=== PATIENT | female | born 1990 | race Two or more races ===

== ENCOUNTER → 2016-11-08 | Outpatient (CLI) | payer BC ==
[2016-11-08 18:42] LABS: BASO % 0.2 % (0.0-1.0); EOS % 0.7 % (0.0-3.0); LARGE UNSTAINED CELL % 0.6 % (0.0-4.0); LYMPH # 0.9 K/mm3 (1.5-6.5); LYMPH % 12.9 % (24.0-44.0); MEAN CORPUSCULAR HEMOGLOBIN 31.1 pg (27.0-33.0); MEAN CORPUSCULAR HGB CONC 34.4 g/dl (32.0-36.5); MEAN CORPUSCULAR VOLUME 90.2 fl (80.0-96.0); MONO # 0.2 K/mm3 (0.0-0.8); MONO % 3.5 % (0.0-5.0); NEUTROPHILS # 5.7 K/mm3 (1.8-7.7); NEUTROPHILS % 82.2 % (36.0-66.0); PLATELET COUNT, AUTOMATED 289 k/mm3 (150-450); RED CELL DISTRIBUTION WIDTH 11.5 % (11.5-14.5); WHITE BLOOD COUNT 6.9 K/mm3 (4.0-10.0)
[2016-11-08 19:07] LABS: T UPTAKE 29 % (30-39)
[2016-11-09 10:18] LABS: HIV SCRN NEGATIVE (NEGATIVE); HIV SCRN1 NEGATIVE (NEGATIVE)
[2016-11-09 10:19] LABS: CONTROL LINE INT CTR LINE PRESENT
[2016-11-11 10:48] LABS: HBsAg Prenatal NEGATIVE (NEGATIVE)
== END ==
LOC: M SMT 13:42
PROVIDERS: ATTEND Obstetrics & Gynecology
DX: Z34.81 Encounter for supervision of other normal pregnancy, first trimester (principal)

== ENCOUNTER → 2016-12-16 | Outpatient (CLI) | payer BC | LOC: M LAB 07:36 | PROVIDERS: ATTEND Specialist | DX: Z13.79 Encounter for other screening for genetic and chromosomal anomalies (principal) ==

== ENCOUNTER → 2017-01-20 | Outpatient (CLI) | payer BC ==
--- NOTE | 2017-01-20 18:19 | REP ---
Clinical: Anatomical evaluation. Comparison: None . Findings: Examination demonstrates a single live intrauterine in cephalic presentation. motion is identified by technologist. Placenta is noted posterior and grade zero without evidence for placenta previa or abruption. Amniotic fluid volume is normal. Cervix measures 4.3 cm in length and appears closed. No evidence for nuchal cord. Gestational age by LMP 19 weeks 1 day with DAVID 06/15/2017 . Gestational age by current measurements 19 weeks 1 day with DAVID 06/15/2017 . FHR equals 155 beats per minute. BPD 4.5 cm 19 weeks 4 days HC 16.3 cm 19 weeks 0 days AC 12.8 cm 18 weeks 2 days FL 3.2 cm 20 weeks 0 days HL 2.8 cm 18 weeks 6 days HC/AC ratio 1.28 Estimated weight 275 grams ( 47th percentile). Anatomical assessment demonstrates normal structures including cerebellum/posterior fossa, lungs, ventricular outflow tracts, diaphragm, stomach, cord insertion, bladder, spine, and upper extremities. Bilateral hydronephrosis with the renal pelvises measuring 5 mm diameter. Limited evaluation of the cranium, cord plexus, cavum, facial features, four-chamber heart, three-vessel cord, and lower extremities (cannot exclude clubfoot). Impression: Appropriate interval growth. Bilateral hydronephrosis suggested and anatomical limitations as described above may warrant reevaluation and follow-up. Signed by Bg Monroe MD 01/20/2017 06:10 P
== END ==
LOC: M RAD 16:20
PROVIDERS: ATTEND Obstetrics & Gynecology
DX: Z36 Encounter for antenatal screening of mother (principal)

== ENCOUNTER → 2017-02-05 | Outpatient (CLI) | payer BC ==
[2017-02-05 13:52] LABS: FREE T4 1.11 NG/DL (0.76-1.46)
== END ==
LOC: M SMT 09:12
PROVIDERS: ATTEND Advanced Practice Midwife
DX: E03.9 Hypothyroidism, unspecified (principal)

== ENCOUNTER → 2017-02-10 | Outpatient (CLI) | payer BC ==
--- NOTE | 2017-02-11 09:26 | REP ---
REASON: Followup anatomy. Multiple ultrasonographic images of the gravid uterus show a single living intrauterine gestation in the cephalic presentation. Doppler interrogation of the heart shows a heart rate of 136 beats per minute. The placenta is posterior and not low lying. The subjective amniotic fluid volume is within normal limits. The cervix measures approximately 3.1 cm in length and is closed. Evaluation of the maternal adnexal spaces showed no abnormalities. BPD 5.3 cm 22 weeks 0 days HC 19.6 cm 21 weeks 5 days AC 16.9 cm 21 weeks 6 days FL 3.7 cm 21 weeks 6 days The estimated weight is 459 grams which is at the 39th percentile for 22 week 1 day gestational age. Structures visualized as unremarkable are as follows: Thalami, cavum septum pellucidum, cerebellum, cisterna magna, cerebral ventricles, spine, kidneys, urinary bladder, cord insertion, three vessel umbilical cord, stomach, four chamber heart, right and left ventricular outflow tracts, thorax, upper lip and facial profile, and upper and lower extremities. The spine was not well visualized today, however, it was well visualized on the prior exam of 01/20/2017. IMPRESSION: Single living intrauterine gestation as described above with an estimated gestational age of 21 weeks 6 days via composite criteria and estimated date of delivery of 06/17/2017 by today's exam. No anomalies were detected. Signed by Crow Young DO 02/11/2017 04:07 P
== END ==
LOC: M RAD 17:25
PROVIDERS: ATTEND Advanced Practice Midwife
DX: Z34.82 Encounter for supervision of other normal pregnancy, second trimester (principal); Z3A.21 21 weeks gestation of pregnancy

== ENCOUNTER → 2017-03-19 | Outpatient (CLI) | payer BC ==
[2017-03-19 12:53] LABS: MEAN CORPUSCULAR HEMOGLOBIN 31.6 pg (27.0-33.0); MEAN CORPUSCULAR HGB CONC 34.2 g/dl (32.0-36.5); MEAN CORPUSCULAR VOLUME 92.3 fl (80.0-96.0); RED CELL DISTRIBUTION WIDTH 12.6 % (11.5-14.5); WHITE BLOOD COUNT 8.3 K/mm3 (4.0-10.0)
== END ==
LOC: M SMT 08:00
PROVIDERS: ATTEND Obstetrics & Gynecology
DX: Z34.82 Encounter for supervision of other normal pregnancy, second trimester (principal)

== ENCOUNTER → 2017-03-28 | Outpatient (CLI) | payer BC | LOC: M LAB 07:48 | PROVIDERS: ATTEND Obstetrics & Gynecology | DX: Z34.82 Encounter for supervision of other normal pregnancy, second trimester (principal) ==

== ENCOUNTER → 2017-04-18 | Outpatient (CLI) | payer BC ==
[2017-04-18 18:37] LABS: FREE T4 1.08 NG/DL (0.76-1.46)
== END ==
LOC: M SMT 14:14
PROVIDERS: ATTEND Advanced Practice Midwife
DX: E03.9 Hypothyroidism, unspecified (principal)

== ENCOUNTER → 2017-05-15 | Outpatient (REF) | payer BC ==
[~2017-05-15] MED LIST: ACET50TA PO; DIBU1OIN TOP; IBUP-1114 PO; LEVO100T5 PO; PRE-TAB3 PO
== END ==
LOC: M LAB REF 11:41
PROVIDERS: ATTEND Obstetrics & Gynecology
DX: Z34.83 Encounter for supervision of other normal pregnancy, third trimester (principal)

== ENCOUNTER → 2017-06-06 | Outpatient (CLI) | payer BC ==
--- NOTE | 2017-06-06 16:55 | REP ---
REASON: Assess growth. Multiple ultrasonographic images of the gravid uterus show a single living intrauterine gestation in the cephalic presentation. Doppler interrogation of the heart shows a heart rate of 136 beats per minute. The placenta is posterior fundal and not low lying. The subjective antidotic fluid volume is within normal limits. Evaluation of the maternal adnexal spaces showed no gross abnormalities. The calculated amniotic fluid index is 13.4 with an expected range of 7.2 to 23.0. BPD 9.5 cm= 38 weeks 6 days HC 33.5 cm= 38 weeks 2 days AC 34.8 cm= 38 weeks 5 days FL 7.5 cm= 38 weeks 2 days The estimated weight is 3544 grams which is at the 59th percentile for a 38 week 5 day gestational age. A full anatomical screen was performed on prior exams. IMPRESSION: Single living intrauterine gestation as described above with an estimated gestational age of 38 weeks 3 days via composite criteria and an estimated date of delivery of 06/17/2017 by today's exam. Signed by Crow Young DO 06/06/2017 04:58 P
== END ==
LOC: M RAD 14:43
PROVIDERS: ATTEND Advanced Practice Midwife
DX: O26.843 Uterine size-date discrepancy, third trimester (principal); Z3A.38 38 weeks gestation of pregnancy

== ENCOUNTER 2017-06-09 04:51 | Inpatient (IN) | payer BC ==
[~2017-06-09] VITALS: Ht 162.6 cm; Wt 99.0 kg
[2017-06-09] VITALS (46 sets, daily range): BP systolic 108–154; BP diastolic 59–91
[2017-06-09] MEDS ORDERED: LEVO100T5 PO (05:00)
[2017-06-09] MEDS ORDERED: PRE-TAB3 PO (05:00)
[2017-06-09] MEDS ORDERED: LACTATED RINGER'S 1000 ML IV STA (06:32)
[2017-06-09] MEDS ORDERED: LR 1,000 ML IV SCH ×2 (06:32→23:41)
[2017-06-09 06:36] LABS: MEAN CORPUSCULAR HEMOGLOBIN 31.5 pg (27.0-33.0); MEAN CORPUSCULAR HGB CONC 35.3 g/dl (32.0-36.5); MEAN CORPUSCULAR VOLUME 89.3 fl (80.0-96.0); WHITE BLOOD COUNT 8.4 K/mm3 (4.0-10.0)
[2017-06-09 07:02] LABS: ALT/SGPT 25 U/L (12-78); AST/SGOT 23 U/L (15-37); BILIRUBIN,TOTAL 0.2 MG/DL (0.2-1.0); CREATININE FOR GFR 0.65 MG/DL (0.55-1.02); GLOMERULAR FILTRATION RATE > 60.0 (>60); URIC ACID 4.3 MG/DL (2.6-6.0)
[2017-06-09] MEDS ORDERED: miSOPROStol 50 MCG 1/2 TAB (S0191) PO SCH (07:15)
--- NOTE | 2017-06-09 12:41 | HPE ---
DATE OF ADMISSION: 06/09/2017 Glo is a 27-year-old female 2, para 0-0-1-0 with an estimated date of confinement (EDC) of 06/15/2017, estimated gestational age 39-3/7 weeks gestation, who presented to labor and delivery with complaints of leakage of fluid. Upon evaluation in labor and delivery, she was found to be grossly ruptured. At this point, a decision was made for admission. She does have a history of hypothyroidism, currently on medication. Upon admission, no bleeding. Good movement. Her record reviewed. Other than the hypothyroid, was essentially unremarkable. PAST MEDICAL HISTORY: Significant for hypothyroidism. PAST SURGICAL HISTORY: Denies. SOCIAL HISTORY: She is . Denies any alcohol, drugs or cigarette smoking. REVIEW OF SYSTEMS: Unremarkable. FAMILY HISTORY: Significant for diabetes and thyroid disease. MEDICATIONS: - vitamins - Synthroid 100 mcg ALLERGIES: No known drug allergies. PHYSICAL EXAMINATION: Obese female in no acute distress. HEENT: Grossly within normal limits. ABDOMEN : Soft, nontender, nondistended. Gravid. EXTREMITIES: No clubbing, cyanosis or edema. Vaginal exam done by RN 1 cm dilated, fetus in vertex position with gross rupture of membranes. Tracing reviewed. Category one tracing with irregular contractions. laboratories: Blood type is B+, rubella immune, hepatitis negative, HIV negative, GC and chlamydia negative, 1-hour sugar testing was abnormal and 3 hours was within normal limits. Genetic screening test was negative. GBS negative. ASSESSMENT: 1. Intrauterine at 39 weeks plus gestation. 2. Gross rupture of membranes. 3. GBS negative. PLAN: Admit to labor and delivery. Routine labs sent. Induction process discussed with the patient.
[2017-06-09] MEDS ORDERED: OXYTOCIN DRIP 30 UNITS in APPROPRIATE DILUENT 1 EA IV SCH ×2 (12:45→23:41)
[2017-06-09] MEDS ORDERED: FENTANYL 2MCG/ML ROPIVACAINE 0.2% IN 0.9% NACL 200ML IVBAG As Ordered ONE (15:05)
[2017-06-09] MEDS ORDERED: REFRIGERATOR IV KEYS XX PRN (17:00)
[2017-06-09] MEDS ORDERED: FENTANYL/ROPIVACAINE/NACL BAG 200 ML EPIDURAL SCH (17:00)
[2017-06-09] MEDS ORDERED: EPIDURAL/PCA KEYS XX PRN (17:00)
[2017-06-09] MEDS ORDERED: ONDANSETRON 4MG/2ML VIAL (J2405) IV PRN ×2 (17:00→23:45)
[2017-06-09] MEDS ORDERED: EPIDURAL COMMENT XX SCH (17:00)
[2017-06-09] MEDS ORDERED: diphenhydrAMINE INJ 50MG/ML VIAL (J1200) IV PRN (17:00)
[2017-06-09] MEDS ORDERED: LACTATED RINGER'S 1000 ML IV PRN (17:00)
[2017-06-09] MEDS ORDERED: ePHEDrine SULFATE 25 MG/5 ML(5MG/ML) SYRINGE IV PRN (17:00)
[2017-06-09] MEDS ORDERED: NALOXONE INJ 0.4 MG/1 ML VIAL (J2310) IV PRN (17:00)
[2017-06-09] MEDS ORDERED: BUTORPHANOL 2 MG/ML INJ (J0595) As Ordered ONE (23:10)
[2017-06-09] MEDS ORDERED: BUTORPHANOL 2 MG/ML INJ (J0595) IV ONE (23:15)
[2017-06-09] MEDS ORDERED: OXYTOCIN 30 UNITS IN 0.9% NaCl 500ML IV BAG (J2590) As Ordered ONE (23:24)
[2017-06-09] MEDS ORDERED: IBUPROFEN 800 MG TAB PO PRN (23:45)
[2017-06-09] MEDS ORDERED: DIBUCAINE 1% OINTMENT 30GM TOP PRN (23:45)
[2017-06-09] MEDS ORDERED: ACETAMINOPHEN 500 MG TAB PO PRN (23:45)
[2017-06-09] MEDS ORDERED: DOCUSATE SODIUM 100 MG CAP PO PRN (23:45)
[2017-06-09] MEDS ORDERED: MEASLES,MUMPS,RUBELLA VACCINE INJ (MMR-II) (90707) SC SCH (23:45)
[2017-06-09] MEDS ORDERED: PROMETHAZINE 25 MG TAB PO PRN (23:45)
[2017-06-09] MEDS ORDERED: RHOGAM 300 MCG (1500 IU) INJ (J2790) IM SCH (23:45)
[2017-06-09 23:53] LABS: CORD GAS ABE A -8.5; CORD GAS O2 SAT A 36.5 %; CORD GAS PCO2 A 58.3 mmHg; CORD GAS PH A 7.174 UNITS; CORD GAS PO2 A 22.9 mmHg; CORD GAS SBC A 16.4 MEQ/L; CORD GAS TCO2 A 22.8 MEQ/L
[2017-06-09 23:55] LABS: CORD GAS ABE V -8.5; CORD GAS HCO3 V 19.1 MEQ/L; CORD GAS O2 SAT V 65.2 %; CORD GAS PCO2 V 46.5 mmHg; CORD GAS PH V 7.231 UNITS; CORD GAS PO2 V 34.3 mmHg; CORD GAS TCO2 V 20.5 MEQ/L
[2017-06-10] VITALS (10 sets, daily range): BP systolic 100–201; BP diastolic 56–103
[2017-06-10] MEDS: PRENATAL VITAMINS CHEWABLE TABLET PO SCH (10:08)
[2017-06-11 06:31] VITALS: BP 112/67
[2017-06-11] MEDS: PRENATAL VITAMINS CHEWABLE TABLET PO SCH (10:00)
[2017-06-11] MEDS ORDERED: IBUP-1114 PO (14:45)
[2017-06-11] MEDS ORDERED: DIBU1OIN TOP (14:45)
[2017-06-11] MEDS ORDERED: ACET50TA PO (14:45)
== END 2017-06-11 14:35 | disposition home or self-care (01) | DRG 560 ==
LOC: M LDO 04:51 → M LDI 05:30 → M OBS 06-10 08:55
PROVIDERS: ADMIT Obstetrics & Gynecology; ATTEND Obstetrics & Gynecology
PROC: 10E0XZZ Delivery of Products of Conception, External Approach (ICD-10-PCS; principal; 2017-06-09)
PROC: 0KQM0ZZ Repair Perineum Muscle, Open Approach (ICD-10-PCS; 2017-06-09)
DX: O42.02 Full-term premature rupture of membranes, onset of labor within 24 hours of rupture (principal); O71.7 Obstetric hematoma of pelvis; Z37.0 Single live birth; E03.9 Hypothyroidism, unspecified; O99.284 Endocrine, nutritional and metabolic diseases complicating childbirth; O70.1 Second degree perineal laceration during delivery; Z3A.39 39 weeks gestation of pregnancy

== ENCOUNTER → 2018-10-14 | Outpatient (CLI) | payer BC ==
[2018-10-14 19:15] LABS: FREE THYROXINE INDEX 3.3 % (1.3-4.8); T UPTAKE 33 % (30-39); THYROXINE (T4) 10.1 UG/DL (4.5-12.0)
== END ==
LOC: M SMT 15:49
DX: N93.9 Abnormal uterine and vaginal bleeding, unspecified (principal)
CPT/HCPCS: 84443

== ENCOUNTER → 2018-10-14 | Outpatient (REF) | payer BC ==
[2018-10-14 22:08] LABS: CHLAMYDIA DNA AMPLIFICATION NEGATIVE (NEGATIVE); GC DNA AMPLIFICATION NEGATIVE (NEGATIVE)
== END ==
LOC: M LAB REF 19:10
DX: Z12.4 Encounter for screening for malignant neoplasm of cervix (principal); Z11.3 Encounter for screening for infections with a predominantly sexual mode of transmission
CPT/HCPCS: 87591